=== PATIENT | male | born 2000 | race Caucasian/White ===

== ENCOUNTER 2021-01-24 21:42 | Emergency (ER) | payer OTHER ==
[~2021-01-24] VITALS: Ht 170.2 cm; Wt 65.8 kg
[2021-01-24] MEDS ORDERED: ALDACTONE100 MG PO (21:49)
[2021-01-24] MEDS ORDERED: PROGESTERONE100 MG PO (21:49)
[2021-01-24] MEDS ORDERED: TRUVADA 100 MG1 EACH PO (21:50)
--- OUTSIDE RECORDS SUMMARY | 2021-01-24 22:44 | XMS ---
PreManage Notification: VANE CONROY Security Biology Tutor Events No recent Security Events currently on file CRITERIA MET - [facility] - 2 Visits in 30 Days CARE PROVIDERS Christopher Matthews Psychologist: Clinical Current PHONE: [phone] Festus has no Care Guidelines for this patient. [place] VISIT COUNT (12 MO.) 4 [facility] [address] [place] [address] TOTAL 6 NOTE: Visits indicate total known visits. ED/UCC VISIT TRACKING (12 MO.) 01/24/2021 21:[address] [facility] [place] TYPE: Emergency COMPLAINT: - CHEST PAIN 12/25[facility]2020 14:[facility]: Emergency DIAGNOSES: - Major depressive disorder, single episode, unspecified - SI - Suicidal - Suicidal ideations [facility]2020 07[facility]: [facility] COMPLAINT: - Unspecified asthma, uncomplicated DIAGNOSES: 1. Unspecified asthma, uncomplicated 1. Unspecified asthma, uncomplicated 2. Encounter for issue of repeat prescription 04/30/2020 11:25 [facility] SADIE Mackey TYPE: Emergency COMPLAINT: - Ocular pain, left eye - Unqualified visual loss, one eye, unspecified DIAGNOSES: 1. Injury of conjunctiva and corneal abrasion without foreign body, left eye, initial encounter 1. Ocular pain, left eye 2. Exposure to other specified factors, initial encounter 02/26/2020 11:19 [facility] Elina Mackey TYPE: Emergency COMPLAINT: - Cough - Fever, unspecified - Low back pain DIAGNOSES: 1. Cough 1. Streptococcal pharyngitis 02/18/2020 02:29 [facility] with [facility] Elina Mackey TYPE: Emergency COMPLAINT: - Shortness of breath DIAGNOSES: 1. Mild intermittent asthma with (acute) exacerbation 1. Shortness of breath INPATIENT VISIT TRACKING (12 MO.) No inpatient visits to display in this time frame [id number]
[2021-01-24] MEDS ORDERED: PROTONIX40 MG PO (23:49)
[2021-01-24] MEDS ORDERED: ZOFRAN4 MG PO (23:49)
== END 2021-01-25 00:20 | disposition home or self-care (01) ==
LOC: ED 21:42
DX: R10.10 Upper abdominal pain, unspecified (principal); R07.89 Other chest pain; K62.89 Other specified diseases of anus and rectum; J45.909 Unspecified asthma, uncomplicated; Z79.899 Other long term (current) drug therapy
CPT/HCPCS: 71046; 74177; 80053; 81001; 83690; 83735; 85025; 85379; 99285-25; J1170; Q9967

== ENCOUNTER 2022-09-28 13:49 | Emergency (ER) | payer OTHER ==
[~2022-09-28] VITALS: Ht 170.2 cm; Wt 70.4 kg
[~2022-09-28 13:49] MED LIST: ALDACTONE100 MG PO; PROGESTERONE100 MG PO; PROTONIX40 MG PO; TRUVADA 100 MG1 EACH PO; ZOFRAN4 MG PO
[2022-09-28] MEDS ORDERED: PROAIR HFA8.5 GM INH (14:13)
[2022-09-28] MEDS ORDERED: ESTRADIOL1 MG PO (14:14)
[2022-09-28] MEDS ORDERED: VALACYCLOVIR1000 MG PO (14:14)
[2022-09-28] MEDS ORDERED: GABAPENTIN100 MG PO (14:15)
[2022-09-28] MEDS ORDERED: ESCITALOPRAM OX10 MG PO (14:16)
[2022-09-28] MEDS ORDERED: MINIPRESS1 MG PO (14:17)
[2022-09-28] MEDS ORDERED: HYDROXYZINE HCL10 MG PO (14:17)
[2022-09-28] MEDS ORDERED: IBU600 MG PO (15:38)
--- NOTE | 2022-09-30 15:31 | EKG ---
[facility] [address] [place], [place] [address] Signed Normal sinus rhythm Normal ECG No previous ECGs available Confirmed by VAISHNAVI GAITAN MD ([id number]) on 09/30/2022 3:30:53 PM Electronically Signed By: VAISHNAVI GAITAN MD 09/30/22 1531 PATIENT NAME: ALMA CONROY Electrocardiogram DATE OF : [birth year] PHYSICIAN: VAISHNAVI GAITAN MD REPORT #: [id number] REPORT IS CONFIDENTIAL AND NOT TO BE RELEASED WITHOUT AUTHORIZATION
== END 2022-09-28 16:05 | disposition home or self-care (01) ==
LOC: ED 13:49
DX: R07.9 Chest pain, unspecified (principal); J45.909 Unspecified asthma, uncomplicated; Z79.899 Other long term (current) drug therapy
CPT/HCPCS: 36415; 71045; 84484; 85379; 93005; 93010; 99285-25

== ENCOUNTER 2023-01-27 12:48 | Emergency (ER) | payer OTHER ==
[~2023-01-27] VITALS: Ht 170.2 cm; Wt 71.6 kg
[~2023-01-27 12:48] MED LIST changes: +ESCITALOPRAM OX10 MG PO; +ESTRADIOL1 MG PO; +GABAPENTIN100 MG PO; +HYDROXYZINE HCL10 MG PO; +IBU600 MG PO; +MINIPRESS1 MG PO; +PROAIR HFA8.5 GM INH; +VALACYCLOVIR1000 MG PO
--- NOTE | 2023-01-27 16:46 | EKG ---
[facility] [address] [place], [place] [address] Signed Normal sinus rhythm with sinus arrhythmia Normal ECG When compared with ECG of 28-SEP-2022 13:59, No significant change was found Confirmed by VAISHNAVI GAITAN MD ([id number]) on 01/27/2023 4:46:15 PM Electronically Signed By: VAISHNAVI GAITAN MD 01/27/23 1646 PATIENT NAME: ALMA CONROY MOISES Electrocardiogram DATE OF : [birth year] PHYSICIAN: VAISHNAVI GAITAN MD REPORT #: [id number] REPORT IS CONFIDENTIAL AND NOT TO BE RELEASED WITHOUT AUTHORIZATION
== END 2023-01-27 16:32 | disposition home or self-care (01) ==
LOC: ED 12:48
DX: R55 Syncope and collapse (principal); R51.9 Headache, unspecified; J45.909 Unspecified asthma, uncomplicated; Z79.899 Other long term (current) drug therapy
CPT/HCPCS: 36415; 70450; 71045; 80053; 84443; 85025; 93005; 93010; 96361; 96374; 96375; 99284-25; J1200; J1885; J2405; J7121

== ENCOUNTER 2023-02-15 23:03 | Emergency (ER) | payer OTHER ==
[~2023-02-15] VITALS: Ht 170.2 cm; Wt 67.7 kg
--- OUTSIDE RECORDS SUMMARY | 2023-02-15 23:08 | XMS ---
PreManage Notification: ALMA CONROY Security Proof Inspector Events No recent Security Events currently on file CRITERIA MET - [facility] - 2 Visits in 30 Days CARE PROVIDERS -[place]- Dentist: Telephone Sales Agent [facility] PHONE: [phone] Christopher Matthews Psychologist: Clinical Current PHONE: Unknown [facility] Current PHONE: Unknown Festus has no Care Guidelines for this patient. Carlyle VISIT COUNT (12 MO.) 3 [facility] TOTAL 3 NOTE: Visits indicate total known visits. ED/UCC VISIT TRACKING (12 MO.) 02/15/2023 23:04 [facility] [place] TYPE: Emergency COMPLAINT: - FLU SYMPTOMS 01/27/2023 12:49 [facility] [place] TYPE: Emergency COMPLAINT: - HEADACHE DIAGNOSES: - Other intermediate (current) drug therapy - Syncope and collapse - Headache, unspecified - Unspecified asthma, uncomplicated 09/28/2022 13:[address] [facility] [place] TYPE: Emergency COMPLAINT: - CHEST PAIN, NUMBNESS ARMS/LEGS DIAGNOSES: - Other intermediate (current) drug therapy - Unspecified asthma, uncomplicated - Chest pain, unspecified INPATIENT VISIT TRACKING (12 MO.) No inpatient visits to display in this time frame [email or web address]
[2023-02-15] MEDS ORDERED: GABAPENTIN100 MG PO (23:19)
[2023-02-16] MEDS ORDERED: PROMETHAZINE HC25 M1 PO (00:42)
== END 2023-02-16 01:07 | disposition home or self-care (01) ==
LOC: ED 23:03
DX: U07.1 COVID-19 (principal); J45.909 Unspecified asthma, uncomplicated; Z88.8 Allergy status to other drugs, medicaments and biological substances; Z79.899 Other long term (current) drug therapy
CPT/HCPCS: 36415; 80053; 83690; 85025; 87502; 96361; 96374; 96375; 99284-25; J1200; J1790; J2405; J7030; U0003

== ENCOUNTER 2024-07-15 08:35 | Emergency (ER) | payer OTHER ==
[~2024-07-15] VITALS: Ht 170.2 cm; Wt 60.7 kg
[~2024-07-15 08:35] MED LIST changes: +ATOMOXETINE HCL60 MG PO; +HYDROCODON-ACE1 EA10 PO; +PREDNISONE20 MG PO; +PROMETHAZINE HC25 M1 PO
--- OUTSIDE RECORDS SUMMARY | 2024-07-15 08:36 | XMS ---
PreManage Notification: ALMA CONROY Security Final Canoe Inspector Events No recent Security Events currently on file CRITERIA MET - [facility] - 2 Visits in 30 Days CARE PROVIDERS -, [facility] Dentist: Money Room Supervisor [facility] PHONE: [phone] -[place]- Dentist: Money Room Supervisor [facility] PHONE: [phone] Christopher Matthews Psychologist: Clinical Current PHONE: Unknown Festus has no Care Guidelines for this patient. Carlyle VISIT COUNT (12 MO.) 2 [facility] TOTAL 2 NOTE: Visits indicate total known visits. ED/UCC VISIT TRACKING (12 MO.) 07/15/2024 08:36 [facility] [place] TYPE: Emergency COMPLAINT: - DENTAL PAIN 07/05/2024 12:07 [facility] [place] TYPE: Emergency COMPLAINT: - BACK PAIN DIAGNOSES: - Allergy status to other drugs, medicaments and biological substances - Low back pain, unspecified - Lumbago with sciatica, right side - Other long term care social worker (current) drug therapy INPATIENT VISIT TRACKING (12 MO.) No inpatient visits to display in this time frame [id number]
[2024-07-15] MEDS ORDERED: IBU800 MG PO (09:02)
[2024-07-15] MEDS ORDERED: AMOXICILLIN500 MG PO (09:02)
[2024-07-15 09:10] VITALS: BP 128/84
[2024-07-15] MEDS ORDERED: IBUPROFEN 800 MG TAB PO ONE (09:15)
== END 2024-07-15 09:11 | disposition home or self-care (01) ==
LOC: ED 08:35
DX: K08.89 Other specified disorders of teeth and supporting structures (principal); J45.909 Unspecified asthma, uncomplicated; Z88.8 Allergy status to other drugs, medicaments and biological substances; Z79.899 Other long term (current) drug therapy
CPT/HCPCS: 99282; A9270